=== PATIENT | female | born 1950 | race Caucasian/White ===

== ENCOUNTER 2023-09-14 02:39 | Outpatient (CLI) | payer MEDICARE, SELFPAY ==
[2023-09-14 13:19] LABS: ALT 32 U/L (14-59); AST 24 U/L (15-37); Albumin 4.5 g/dL (3.4-5.0); Alkaline Phosphatase 80 U/L (46-116); Bilirubin, Direct 0.1 mg/dL (0.0-0.2); Bilirubin, Total 0.3 mg/dL (0.2-1.0); Total Protein 7.6 g/dL (6.4-8.2)
[2023-09-14 13:30] LABS: Calculated LDL 133 mg/dL (<100); Cholesterol 244 mg/dL (<200); HDL Cholesterol 88 mg/dL (40-60); Triglyceride 115 mg/dL (<150)
== END 2023-09-14 02:40 | disposition home or self-care (01) ==
PROVIDERS: PCP Family Medicine; Visit Provider Internal Medicine Cardiovascular Disease
DX: E78.5 Hyperlipidemia, unspecified (principal); R79.89 Other specified abnormal findings of blood chemistry
CPT/HCPCS: 36415; 80061; 80076

== ENCOUNTER 2023-12-28 08:49 | Outpatient (CLI) | payer MEDICARE, SELFPAY ==
[2023-12-28 12:30] LABS: Hemoglobin A1C 6.1 % (<5.7)
[2023-12-28 12:51] LABS: CREATININE 1.2 mg/dL (0.55-1.02); Estimated GFR 48.09 (mL/min/1.73m2); Potassium 4.8 mmol/L (3.5-5.1); TSH (W/Ref FT4) 1.73 uIU/mL (0.36-3.74)
== END 2023-12-28 08:50 | disposition home or self-care (01) ==
LOC: LOS 08:49
PROVIDERS: PCP Family Medicine; Visit Provider Family Medicine
DX: E03.9 Hypothyroidism, unspecified (principal); I10 Essential (primary) hypertension; E11.51 Type 2 diabetes mellitus with diabetic peripheral angiopathy without gangrene
CPT/HCPCS: 36415; 82565; 83036; 84132; 84443

== ENCOUNTER → 2024-01-12 02:56 | Outpatient (CLI) | payer MEDICARE, SELFPAY ==
--- NOTE | 2024-01-12 08:00 | DI.CTLCSR_ITS ---
Exam(s) CT CHEST LUNG CANCER SCREEN EXAM: CT CHEST LUNG CANCER SCREEN CLINICAL HISTORY: Screening for lung cancer, CURRENT SMOKER, F17.210 TECHNIQUE: Imaging Protocol: Axial computed tomography images with coronal and sagittal reformatted images were created and reviewed. Low dose screening protocol. COMPARISON: No exams were available for comparison FINDINGS: Tracheobronchial tree: No bronchiectasis or mucus plugging. Mediastinum and Jyoti: No dominant adenopathy or fluid collection. Pulmonary parenchyma: No consolidation or dominant measurable mass. [id number]-[id number] emphysematous ch anges. Lung Nodules: Calcified and noncalcified scattered micro nodules. No suspicious nodules Pleura: No effusion. No pneumothorax. Heart: The heart is not dilated. Severe coronary artery calcifications versus stents are seen. Mild anterior pericardial thickening. Aorta: Thoracic aorta non-dilated.Mild atherosclerotic changes Upper abdomen: Unremarkable. Bones: Unremarkable for age. Soft Tissues: Unremarkable. IMPRESSION: No suspicious pulmonary nodules. Lung RADS Cat 2 - Benign Appearance / Behavior: Nodules with a very low likelihood of becoming a clin ically active cancer due to size or lack of growth Lung-RADS 1.0 CATEGORIES: Category 0 - Prior chest CT exam(s) being located for comparison. Category 1 - Annual screening in 12 months. No nodules or definitely benign nodules. Category 2 - Annual screening in 12 months. Benign appearance. Nodules with low likelihood of becomin g active cancer. Category 3 - 6-month follow-up. Probably benign. Short-term follow-up suggested. Nodules with low lik elihood of becoming active cancer. Category 4A - 3-month follow-up and CT/PET if >8 mm in size. Suspicious finding. Findings which requi re additional testing. Category 4B - Findings which require additional testing and tissue sampling. Category 4X - Category 3 or 4 nodules with additional features or imaging findings that increases the suspicion of malignancy. Modifier S- Potentially clinically significant findings (non lung cancer) RADIATION DOSE DELIVERED: 77.71mGy.cm Total DLP DATA REPOSITORY: All CT scans at this facility are submitted to the National Radiology Data Registry (NRDR) Dose Index Registry (DIR) with the [employer] (ACR). RADIATION OPTIMIZATION: All CT scans at this facility use at least one of these dose optimization te chniques: automated exposure control; mA and/or kV adjustment per patient size (includes targeted exa ms where dose is matched to clinical indication); or iterative reconstruction.
--- NOTE | 2024-01-12 14:32 | DI.RAD_ITS ---
Exam(s) XR HIP RT COMPLETE AP PELVIS EXAM: XR HIP RT COMPLETE AP PELVIS CLINICAL HISTORY: rt hip pain; s/p fall 2 months ago, M25.551. TECHNIQUE: 2D digital imaging was performed of the right hand. Two images were obtained. AP, latera l and oblique views were obtained. COMPARISON: No exams were available for comparison FINDINGS: BONES: There is a subcapital right femoral neck fracture of indeterminate age. CT scan and/or MRI is recommended for further evaluation. No bony destructive lesion is seen. JOINTS: No dislocation present. Moderate degenerative changes are seen in the lower lumbar spine. Th e sacroiliac joints are intact. SOFT TISSUE: Extensive vascular calcification is present. IMPRESSION: Right subcapital femoral neck fracture. This is of indeterminate age. CT scan and/or MRI is recomme nded for further evaluation. DATA REPOSITORY: RADIATION DOSE DELIVERED:
== END ==
PROVIDERS: PCP Family Medicine; Visit Provider Family Medicine
DX: F17.210 Nicotine dependence, cigarettes, uncomplicated (principal); M25.551 Pain in right hip; Z12.2 Encounter for screening for malignant neoplasm of respiratory organs
CPT/HCPCS: 71271; 73502

== ENCOUNTER → 2024-01-13 01:35 | Outpatient (CLI) | payer MEDICARE, SELFPAY ==
--- NOTE | 2024-01-13 08:18 | DI.US_ITS ---
Exam(s) US CAROTID EXAM: US CAROTID CLINICAL HISTORY: carotid stenosis,I65.29. TECHNIQUE: Ultrasound carotids performed using grayscale, color-flow, and spectral Doppler imaging. COMPARISON: No exams were available for comparison FINDINGS: RIGHT CAROTID ARTERY: Plaque: There is calcific plaque seen in the common carotid arteries, the carotid bulb and the data analysis intern al carotid arteries. The findings are most marked in the proximal ICA. Velocity elevation: Yes LEFT CAROTID ARTERY: Plaque: There is calcific plaque seen in the common carotid artery, the proximal internal carotid art curtis in the carotid bulb. The findings are most marked in the proximal internal carotid artery. Velocity elevation: None. VERTEBRAL ARTERIES: Antegrade flow. Measurements: R Bulb: 125.2cm/s PS / 34cm/s ED R CCA: 47.9cm/s PS / 13.9cm/s ED R ECA: 136.2cm/s PS / 10.2cm/s ED R ICA Prox: 150.8cm/s PS / 41.3cm/s ED R ICA Mid: 84.5cm/s PS / 27.7cm/s ED R ICA Distal: 74.7cm/s PS /26.6cm/s ED R Vert: 42.8cm/s PS / 11.6cm/s ED R SVR: 3.1 R DVR: 3 L Bulb: 52.8cm/s PS / 15.3cm/s ED L CCA: 53.5cm/s PS / 18.1cm/s ED L ECA: 71cm/s PS / 6.8cm/s ED L ICA Prox: 121.6cm/s PS / 43.1cm/s ED L ICA Mid: 95.7cm/s PS / 30.2cm/s ED L ICA Distal: 83.4cm/s PS / 28.7cm/s ED L Vert: 59.2cm/s PS / 18.8cm/s ED L SVR: 2.3 L DVR: 2.4 IMPRESSION: 1. Bilateral calcific plaque involving the common carotid artery, the carotid bulb and the proximal i nternal carotid arteries. 2. Velocity elevation in the proximal right internal carotid artery consistent with 50-69 percent lelia nosis. 3. No hemodynamically significant stenosis is seen on the left. Criteria for Carotid Stenosis: Normal: ICA PSV <125 cm/s no plaque or intimal thickening is visible. <50% stenosis: ICA PSV <125 cm/s and plaque or intimal thickening is visible. 50-69% stenosis: ICA PSV is 125-250 cm/s and plaque is visible. >70% stenosis to near occlusion: ICA PSV >250 cm/s with visible plaque and luminal narrowing. DATA REPOSITORY:
== END ==
PROVIDERS: PCP Family Medicine; Visit Provider Family Medicine
DX: I65.23 Occlusion and stenosis of bilateral carotid arteries (principal)
CPT/HCPCS: 93880

== ENCOUNTER → 2024-01-20 09:09 | Outpatient (BNVA) | payer MEDICARE, SELFPAY | PROVIDERS: PCP Family Medicine; Referring Provider Family Medicine; Visit Provider Student in an Organized Health Care Education/Training Program | DX: S72.001A Fracture of unspecified part of neck of right femur, initial encounter for closed fracture (principal); W06.XXXA Fall from bed, initial encounter | CPT/HCPCS: 99203 ==

== ENCOUNTER 2024-03-09 14:14 | Outpatient (CLI) | payer MEDICARE, SELFPAY ==
--- NOTE | 2024-03-09 13:00 | DI.RAD_ITS ---
Exam(s) XR HIP RT AP LAT ONLY EXAM: XR HIP RT AP LAT ONLY CLINICAL HISTORY: F/U R FEMUR FX. TECHNIQUE: 2D digital imaging was performed of the right hip. Two images were obtained. AP and late ral right hip views were obtained. COMPARISON: CR XR HIP RT COMPLETE AP PELVIS from 01/12/2024 FINDINGS: BONES: There is again seen a right subcapital femoral neck fracture deformity. No new fracture is se en. No bony destructive lesion is seen. JOINTS: No dislocation present. There are mild degenerative changes seen at the right hip. SOFT TISSUE: Vascular calcifications are present. IMPRESSION: Stable appearance of the right subcapital femoral neck fracture deformity. DATA REPOSITORY: RADIATION DOSE DELIVERED:
== END 2024-03-09 14:15 | disposition home or self-care (01) ==
LOC: DIORS 14:14
PROVIDERS: PCP Family Medicine; Referring Provider Family Medicine; Visit Provider Student in an Organized Health Care Education/Training Program
DX: S72.001D Fracture of unspecified part of neck of right femur, subsequent encounter for closed fracture with routine healing (principal); X58.XXXD Exposure to other specified factors, subsequent encounter
CPT/HCPCS: 99213; 73502

== ENCOUNTER 2024-05-04 15:46 | Outpatient (CLI) | payer MEDICARE, SELFPAY ==
--- NOTE | 2024-05-04 13:28 | DI.RAD_ITS ---
Exam(s) XR HIP RT AP LAT ONLY EXAM: XR HIP RT AP LAT ONLY CLINICAL HISTORY: F/U R FEMUR FX. TECHNIQUE: 2D digital imaging was performed. Two views COMPARISON: CR XR HIP RT AP LAT ONLY from 03/09/2024 FINDINGS: BONES: There has been interval healing of the previously noted subcapital fracture of the femur with mild residual deformity. No acute fracture is present. No bony destructive lesion is seen. JOINTS: No dislocation present. The right hip joint space is maintained. There is spurring at the acetabulum and margin of the femoral head. SOFT TISSUE: Vascular calcifications. IMPRESSION: The subcapital fracture the right femur appears to have healed. DATA REPOSITORY: RADIATION DOSE DELIVERED:
== END 2024-05-04 15:47 | disposition home or self-care (01) ==
LOC: DIORS 15:46
PROVIDERS: PCP Family Medicine; Referring Provider Family Medicine; Visit Provider Student in an Organized Health Care Education/Training Program
DX: S72.001D Fracture of unspecified part of neck of right femur, subsequent encounter for closed fracture with routine healing (principal); X58.XXXD Exposure to other specified factors, subsequent encounter
CPT/HCPCS: 99213; 73502

== ENCOUNTER 2024-05-11 02:15 | Outpatient (CLI) | payer MEDICARE, SELFPAY ==
--- NOTE | 2024-05-11 07:30 | DI.DEXA_ITS ---
Exam(s) XR DEXA BONE DENSITY W/WO KAE EXAM: XR DEXA BONE DENSITY W/WO KAE CLINICAL HISTORY: recent fracture,SCREENING FOR OSTEOPOROSIS IN POSTMENOPAUSAL STATUS,Z78.0 TECHNIQUE: Routine DEXA evaluation of the lumbar spine, hip, or forearm. COMPARISON: No exams were available for comparison FINDINGS: Performed on a Hologic unit. Lateral image: No compression fracture evident. Lumbar Spine total T-score: 3.4 Hip total T-score:-1.1 Independent reading at the level of the femoral neck yields T-score of -1.0 Forearm total T-score: -1.4 IMPRESSION: Bone mineral density measures in the osteopenia range. Fracture risk is moderate. Note: Any spine fracture indicates 5x risk for subsequent spine fracture and 2x risk for subsequent h ip fracture. World Health Organization criteria for BMD interpretation classify patients: Normal...... T- Score at or above -1.0 Osteopenic... T- Score between -1.0 and -2.5 Osteoporosis... T-Score at or below -2.5
== END 2024-05-11 02:35 ==
LOC: DI 02:15
PROVIDERS: PCP Family Medicine; Visit Provider Family Medicine
DX: Z78.0 Asymptomatic menopausal state (principal); Z13.820 Encounter for screening for osteoporosis; M85.89 Other specified disorders of bone density and structure, multiple sites
CPT/HCPCS: 77080

== ENCOUNTER 2025-02-12 02:13 | Outpatient (CLI) | payer MEDICARE, SELFPAY ==
[2025-02-12 12:59] LABS: Hemoglobin A1C 6.2 % (<5.7)
[2025-02-12 13:05] LABS: Calculated LDL 166 mg/dL (<100); Cholesterol 265 mg/dL (<200); Estimated GFR 59.49 (mL/min/1.73m2); HDL Cholesterol 65 mg/dL (>or=50); Potassium 4.6 mmol/L (3.5-5.1); TSH (W/Ref FT4) 2.01 uIU/mL (0.36-3.74); Triglyceride 171 mg/dL (<150)
== END 2025-02-12 02:14 | disposition home or self-care (01) ==
LOC: LOS 02:13
PROVIDERS: PCP Family Medicine; Visit Provider Family Medicine
DX: E03.9 Hypothyroidism, unspecified (principal); R73.9 Hyperglycemia, unspecified; E78.5 Hyperlipidemia, unspecified; I10 Essential (primary) hypertension
CPT/HCPCS: 36415; 80061; 82565; 83036; 84132; 84443

== ENCOUNTER 2025-04-18 14:50 | Outpatient (CLI) | payer MEDICARE, SELFPAY ==
--- NOTE | 2025-04-18 11:05 | DI.CTLCSR_ITS ---
Exam(s) CT CHEST LUNG CANCER SCREEN EXAM: CT CHEST LUNG CANCER SCREEN CLINICAL HISTORY: Screening for lung cancer F17.210 NICOTINE DEPENDENCE TECHNIQUE: Imaging Protocol: Axial computed tomography images with coronal and sagittal reformatted images were created and reviewed. Lung Computer Aided Detection (CAD) was utilized. COMPARISON: CT CT CHEST LUNG CANCER SCREEN from 01/12/2024 FINDINGS: Tracheobronchial tree: Patent where visualized. No bronchiectasis. Pulmonary parenchyma: No consolidation or dominant measurable mass. No architectural distortion. There are few calcified granuloma present. Moderate emphysematous changes are present. Lung Nodules: There are no suspicious pulmonary nodules. Mediastinum and Jyoti: No dominant adenopathy or fluid collection. The esophagus is unremarkable. Lymph nodes: Unremarkable. Pleura: No effusion or pneumothorax. Heart: The heart is not dilated. Three vessel coronary artery calcification is present. No pericardial effusion. Aorta: Thoracic aorta non-dilated.Atherosclerotic calcification is present. Upper abdomen: Unremarkable. Soft Tissues: Unremarkable. Bones: Within normal limits. IMPRESSION: There are no suspicious pulmonary nodules. Lung RADS Cat 1 - Negative: No nodules and definitely benign nodules Lung-RADS 1.0 CATEGORIES: Category 0 - Prior chest CT exam(s) being located for comparison. Category 1 - Annual screening in 12 months. No nodules or definitely benign nodules. Category 2 - Annual screening in 12 months. Benign appearance. Nodules with low likelihood of becoming active cancer. Category 3 - 6-month follow-up. Probably benign. Short-term follow-up suggested. Nodules with low likelihood of becoming active cancer. Category 4A - 3-month follow-up and CT/PET if >8 mm in size. Suspicious finding. Findings which require additional testing. Category 4B - Findings which require additional testing and tissue sampling. Suspicious finding. Category 4X - Category 3 or 4 nodules with additional features or imaging findings that increases the suspicion of malignancy. Modifier S- Potentially clinically significant finding. (Non lung cancer) RADIATION DOSE DELIVERED: 22.64mGy.cm Total DLP 22.64mGy.cmTotal DLP DATA REPOSITORY: All CT scans at this facility are submitted to the National Radiology Data Registry (NRDR) Dose Index Registry (DIR) with the [employer] (ACR). RADIATION OPTIMIZATION: All CT scans at this facility use at least one of these dose optimization techniques: automated exposure control; mA and/or kV adjustment per patient size (includes targeted exams where dose is matched to clinical indication); or iterative reconstruction.
== END 2025-04-18 15:10 ==
LOC: DI 14:50
PROVIDERS: PCP Family Medicine; Visit Provider Family Medicine
DX: Z12.2 Encounter for screening for malignant neoplasm of respiratory organs (principal); F17.210 Nicotine dependence, cigarettes, uncomplicated
CPT/HCPCS: 71271